=== PATIENT | male | born 1950 | race Hispanic/Latino ===

== ENCOUNTER → 2017-09-05 | Day surgery (SDC) | payer MEDICARE, OTHER ==
[2017-09-03 10:52] LABS: BASOPHILS % 0.4 % (0.0-1.0); EOSINOPHILS # (AUTO) 0.1 (0.0-0.4); EOSINOPHILS % 1.8 % (0.0-6.0); HEMATOCRIT 41.9 % (38.2-49.6); HEMOGLOBIN 14.2 g/dL (14.0-18.0); LYMPHOCYTES % 27.5 % (18.0-39.1); MEAN CORPUSCULAR HEMOGLOBIN 29.5 pg (28-32); MEAN CORPUSCULAR HGB CONC 33.9 g/dL (31-35); MEAN CORPUSCULAR VOLUME 87.1 fL (81-99); MONOCYTES # (AUTO) 0.4 (0.2-0.8); NEUTROPHILS # (AUTO) 4.6 (2.1-6.9); PLATELET COUNT 143 x10e3/uL (140-360); RED BLOOD COUNT 4.81 x10e6/uL (4.3-5.7); RED CELL DISTRIBUTION WIDTH 12.4 % (11.7-14.4)
--- NOTE | 2017-09-03 11:04 | Diagnostic Imaging Report ---
PROCEDURE:CHEST 2 VIEWS TECHNIQUE:PA and lateral chest totaling 3 radiographs INDICATION:Preoperative evaluation for left knee surgery COMPARISON:None. FINDINGS: Lungs are clear and symmetrically inflated. No pleural effusions. Enlarged cardiac silhouette. 2 the pacemaker of the left hemithorax; intact leads. Normal central vasculature. Intact skeleton with multilevel degenerative disc disease. CONCLUSION: Cardiomegaly with indwelling pacemaker. No acute abnormality. Dictated by: Bennie Jenkins M.D. on 09/03/2017 at 11:07 Electronically approved by: Bennie Jenkins M.D. on 09/03/2017 at 11:07
[2017-09-03 11:06] LABS: ANION GAP 12.3 mmol/L (8-16); BLOOD UREA NITROGEN 12 mg/dL (7-26); BUN/CREATININE RATIO 12 (6-25); CALCIUM 10.2 mg/dL (8.4-10.2); CARBON DIOXIDE 30 mmol/L (22-29); CHLORIDE 104 mmol/L (98-107); CREATININE, SERUM 1.02 mg/dL (0.72-1.25); EST GLOMERULAR FILTRATION RATE > 60 ML/MIN (60-); GLUCOSE 122 mg/dL (74-118); POTASSIUM 4.3 mmol/L (3.5-5.1); SODIUM 142 mmol/L (136-145)
[~2017-09-05] MED LIST: ASPIRIN81 MG PO; BUPIVACAINE 0.5%/EPI 30 ML SDV INJ ONE; CEFAZOLIN SOD 2 GM/D5W 50ML 50 ML IV ONE; DEXAMETHASONE SOD PHOS INJ 4 MG/ML VIAL ONE; EPHEDRINE SULFATE INJ 50 MG/10 ML SYR ONE; FENTANYL CITRATE/PF 100MCG/2 ML INJ ONE; FINASTERIDE5 MG PO; FLOMAX0.4 MG PO; GLIPIZIDE ER5 MG PO; KETOROLAC TROMETHAMINE 30 MG/ML VIAL ONE; LIDOCAINE HCL 2% LOCAL INJ 5 ML SDV VIAL INJ ONE; LOSARTAN POTASS25 MG PO; LOVASTATIN40 MG PO; METFORMIN HCL1000 MG PO; MIDAZOLAM HCL 2 MG/2 ML VIAL ONE; NUGENIX PO; ONDANSETRON HCL INJ 2 MG/ML VIAL ONE; PROPOFOL IV EMULSION 10 MG/ML 20 ML VIAL ONE; SEVOFLURANE INHAL SOLN 250 ML PEN BTL ONE; TERAZOSIN HCL1 MG PO; TRIAMTERENE-HCTZ1 EA PO
--- OUTSIDE RECORDS SUMMARY | 2017-09-05 09:57 | XMS REPORT ---
Author Author [facility] Address Unknown Phone Unavailable Care Team Providers Care Marriage Therapist Name Role Phone MARY TANG Unavailable Unavailable Problems This patient has no known problems. Allergies, Adverse Reactions, Alerts This patient has no known allergies or adverse reactions. Medications This patient has no known medications. Results Test Description Test Time Test Comments Text Results Atomic Results Result Comments CHEST 2 VIEWS [place] [address] Patient Name: KIM DAVID MR #: [id number] : 1950 Age/Sex: 67/M Req #: [id number] [facility] Physician: Ordered by: ANDREA RODRIGUEZ MD Report #: [id number] Location: OR Room/Bed: Procedure: [id number] DX/CHEST 2 VIEWS Exam Date: 09/03/17 Exam Time: 0950 REPORT STATUS: Signed PROCEDURE: CHEST 2 VIEWS TECHNIQUE: PA and lateral chest totaling 3 radiographs INDICATION: Preoperative evaluation for left knee surgery COMPARISON: None. FINDINGS: Lungs are clear and symmetrically inflated. No pleural effusions. Enlarged cardiac silhouette. 2 the pacemaker of the left hemithorax; intact leads. Normal central vasculature. Intact skeleton with multilevel degenerative disc disease. CONCLUSION: Cardiomegaly with indwelling pacemaker. No acute abnormality. Dictated by: María Jenkins M.D. on 2017 at 11:07 Electronically approved by: María Jenkins M.D. on 07/2017 at 11:07 Dictated By: MARÍA JENKINS MD 1107 Transcribed By: BORA on 09/03/17 1107 COPY TO: ANDREA RODRIGUEZ MD
--- NOTE | 2017-09-10 10:18 | Operative Report ---
DATE OF PROCEDURE: September 05, 2017 PREOPERATIVE DIAGNOSES 1. Left knee medial meniscus tear. 2. Left knee degenerative joint disease of the knee. POSTOPERATIVE DIAGNOSES 1. Left knee medial meniscus tear. 2. Left knee degenerative joint disease of the knee. OPERATIONS/PROCEDURES PERFORMED 1. The patient underwent a left knee examination under anesthesia. 2. Left knee arthroscopy. 3. Left knee partial medial meniscectomy. 4. Left knee chondroplasty of the patella, trochlea, the medial femoral condyle, medial tibial plateau, lateral femoral condyle, and lateral tibial plateau. HIDE OR SKIN BUFFER: None. ANESTHESIA: General endotracheal intubation anesthesia. IV FLUIDS: Per the anesthesia record. BRIEF DESCRIPTION OF THE PATIENT'S OPERATIVE PROCEDURE: Mr. Lutz was taken to the operating room and placed in the supine position on the operating table. Following the induction of general anesthesia, as well as endotracheal intubation, the patient's left lower extremity was examined under anesthesia. He was found to have a mild effusion within the knee joint, but otherwise ligamentously stable knee. The patient's lower extremity was prepped and draped in the standard surgical fashion. A 2-portal technique was used to provide this patient arthroscopic evaluation of the knee joint. Examination of the suprapatellar pouch, medial and lateral gutters found no evidence of loose bodies. There was, however, evidence of chondromalacia of the patella and trochlear surfaces. Scope was advanced in the medial compartment. Examination of the medial compartment demonstrated a torn medial meniscus. There was also chondromalacia of the articulating surfaces. A combination of biting forceps and motorized shaver were used to resect the torn portion of the meniscus. Chondroplasties of the medial and femoral condyle, medial and tibial plateau was performed at this time. Scope was advanced into the intracondylar notch, and the anterior cruciate ligament was identified and found to be intact. Scope was advanced in the lateral compartment, and chondromalacia of the articulating surfaces were encountered. A chondroplasty of the lateral femoral condyle and lateral tibial plateau were performed at this time. Scope was advanced to the suprapatellar pouch, and chondroplasty of the patella and trochlea were performed. The knee was deflated of its sterile normal saline. Each of the portal sites were closed using 4-0 nylon suture. The portal sites as well as the knee itself were injected with 0.5% Marcaine with epinephrine. Sterile dressings were applied. The patient was awakened and taken to the postanesthesia care unit in stable condition. Job#: [id number]
== END | disposition home or self-care (01) ==
LOC: OR 09:55
PROVIDERS: ATTEND Specialist
DX: S83.222A Peripheral tear of medial meniscus, current injury, left knee, initial encounter (principal); S83.262A Peripheral tear of lateral meniscus, current injury, left knee, initial encounter; S83.221A Peripheral tear of medial meniscus, current injury, right knee, initial encounter; M22.42 Chondromalacia patellae, left knee; M17.0 Bilateral primary osteoarthritis of knee; E11.9 Type 2 diabetes mellitus without complications; N40.0 Benign prostatic hyperplasia without lower urinary tract symptoms; I10 Essential (primary) hypertension; E78.00 Pure hypercholesterolemia, unspecified; E78.5 Hyperlipidemia, unspecified; X58.XXXA Exposure to other specified factors, initial encounter; Z01.812 Encounter for preprocedural laboratory examination; Z13.83 Encounter for screening for respiratory disorder NEC; Z01.818 Encounter for other preprocedural examination; Z79.84 Long term (current) use of oral hypoglycemic drugs; Z79.82 Long term (current) use of aspirin; Z68.34 Body mass index [BMI] 34.0-34.9, adult; Z95.0 Presence of cardiac pacemaker
CPT/HCPCS: 29881; 36415 ×2; 71046; 80048; 82948; 85025; J1100; J1885; J2001; J2250; J2405

== ENCOUNTER 2018-06-22 16:37 | Observation (INO) | payer MEDICARE, OTHER ==
[~2018-06-22] VITALS: Ht 175.3 cm; Wt 106.3 kg
[~2018-06-22 16:37] MED LIST changes: -BUPIVACAINE 0.5%/EPI 30 ML SDV INJ ONE; -CEFAZOLIN SOD 2 GM/D5W 50ML 50 ML IV ONE; -DEXAMETHASONE SOD PHOS INJ 4 MG/ML VIAL ONE; -EPHEDRINE SULFATE INJ 50 MG/10 ML SYR ONE; -FENTANYL CITRATE/PF 100MCG/2 ML INJ ONE; -KETOROLAC TROMETHAMINE 30 MG/ML VIAL ONE; -LIDOCAINE HCL 2% LOCAL INJ 5 ML SDV VIAL INJ ONE; -MIDAZOLAM HCL 2 MG/2 ML VIAL ONE; -ONDANSETRON HCL INJ 2 MG/ML VIAL ONE; -PROPOFOL IV EMULSION 10 MG/ML 20 ML VIAL ONE; -SEVOFLURANE INHAL SOLN 250 ML PEN BTL ONE
[2018-06-22 18:26] LABS: BASOPHILS % 0.5 % (0.0-1.0); EOSINOPHILS # (AUTO) 0.2 (0.0-0.4); EOSINOPHILS % 3.7 % (0.0-6.0); HEMATOCRIT 38.5 % (38.2-49.6); HEMOGLOBIN 12.4 g/dL (14.0-18.0); LYMPHOCYTES # (AUTO) 1.6 (1.0-3.2); MEAN CORPUSCULAR HEMOGLOBIN 29.3 pg (28-32); MEAN CORPUSCULAR HGB CONC 32.2 g/dL (31-35); MONOCYTES # (AUTO) 0.6 (0.2-0.8); MONOCYTES % 8.8 % (4.4-11.3); NEUTROPHILS # (AUTO) 3.8 (2.1-6.9); NEUTROPHILS % 60.7 % (38.7-80.0); PLATELET COUNT 142 x10e3/uL (140-360); RED BLOOD COUNT 4.23 x10e6/uL (4.3-5.7); RED CELL DISTRIBUTION WIDTH 13.3 % (11.7-14.4)
--- NOTE | 2018-06-22 18:29 | Diagnostic Imaging Report ---
Examination: CT head without contrast Clinical Indication: Dizziness. Technique: Transaxial noncontrast images from the skull base through the vertex were obtained. Sagittal and coronal reformatted images were done. Dose modulation, iterative reconstruction, and/or weight based adjustment of the mA/kV was utilized to reduce the radiation dose to as low as reasonably achievable. Comparison: None. Findings: Scalp: No abnormalities. Bones: Intact. No fractures. No blastic or lytic lesions. Brain sulci: Appropriate for patient's age. Ventricles: Normal in size and configuration. No hydrocephalus. . Extra-axial space: No abnormalities. Parenchyma: There are subtle confluent areas of low-attenuation within subcortical and periventricular white matter, nonspecific, but could represent microvascular ischemic disease. No masses, hemorrhage, or acute or chronic cortical based vascular insults. Suprasellar region: No abnormalities. Craniocervical junction: The foramen magnum is patent. No Chiari one malformation. Impression: 1. No acute intracranial finding. 2. Mild chronic microvascular ischemic change. Signed by: Dr. Ariane Wilkins M.D. on 06/22/2018 6:25 PM
[2018-06-22 18:37] LABS: INR 0.88; PROTHROMBIN TIME 12.4 seconds (11.9-14.5)
--- NOTE | 2018-06-22 18:37 | Diagnostic Imaging Report ---
EXAMINATION: CHEST SINGLE (PORTABLE) COMPARISON: Chest x-ray 09/03/2017 INDICATION: ^CHEST PAIN ^[id number] ^1811 ^Y DISCUSSION: Frontal view of the chest obtained at 1814 hours. HEART AND MEDIASTINUM: Stable cardiomegaly LINES: Dual-lead pacemaker wires terminate in the right atrium and right ventricle. Battery pack is stable in orientation. LUNGS: Diffuse hyperinflation. Central vascular markings are mildly prominent but stable. No pneumonia or pulmonary edema. PLEURA: No pleural effusion or pneumothorax. BONES AND SOFT TISSUES: Stable degenerative changes of the shoulders and spine. No focal osseous lesions. The soft tissues are normal. IMPRESSION: Cardiomegaly and mild central vascular congestion. No evidence of edema or pneumonia. Signed by: Dr. Salima Elizondo MD on 06/22/2018 6:33 PM
[2018-06-22 18:39] LABS: ALANINE AMINOTRANSFERASE 21 IU/L (0-55); ALBUMIN 3.9 g/dL (3.5-5.0); ALBUMIN/GLOBULIN RATIO 1.1 (0.8-2.0); ALKALINE PHOSPHATASE 74 IU/L (40-150); ANION GAP 13.2 mmol/L (8-16); BLOOD UREA NITROGEN 24 mg/dL (7-26); BUN/CREATININE RATIO 21 (6-25); CALCIUM 9.2 mg/dL (8.4-10.2); CARBON DIOXIDE 24 mmol/L (22-29); CHLORIDE 105 mmol/L (98-107); CREATINE KINASE 225 IU/L (30-200); CREATININE, SERUM 1.12 mg/dL (0.72-1.25); EST GLOMERULAR FILTRATION RATE > 60 ML/MIN (60-); GLUCOSE 98 mg/dL (74-118); POTASSIUM 4.2 mmol/L (3.5-5.1); SODIUM 138 mmol/L (136-145)
[2018-06-22 19:07] LABS: BILIRUBIN,URINE NEGATIVE (NEGATIVE); CLARITY,URINE CLEAR (CLEAR); COLOR,URINE YELLOW (YELLOW); KETONES,URINE NEGATIVE (NEGATIVE); LEUKOCYTE ESTERASE ,URINE NEGATIVE (NEGATIVE); NITRITE,URINE NEGATIVE (NEGATIVE); PROTEIN,URINE DIPSTICK NEGATIVE (NEGATIVE); URINE UROBILINOGEN 0.2 mg/dL (0.2 - 1)
[2018-06-22 19:17] LABS: BACTERIA,URINE FEW /HPF; EPITHELIAL CELLS,URINE FEW /LPF; WBC,URINE (MAN) 0-5 /HPF (0-5)
[2018-06-22] MEDS ORDERED: MECLIZINE HCL12.5 MG PO (19:41)
[2018-06-22] MEDS ORDERED: MECLIZINE HCL 12.5 MG TAB PO ONE (19:45)
[2018-06-22] MEDS ORDERED: SODIUM CHLORIDE 0.9% 1000ML 1,000 ML IV SCH (19:45)
[2018-06-22] MEDS ORDERED: SODIUM CHLORIDE 0.9% 1000ML 1,000 ML IV ONE (20:45)
[2018-06-23] MEDS ORDERED: DEXTROSE 50% SYRINGE 50 ML IV PRN (00:45)
--- NOTE | 2018-06-23 00:55 | NUR ---
Pt arrived to the unit from ER in a stretcher with c/o dizziness and vertigo.aaox3.admission assessment done.pt is not able to provide complete history.pt is sleepy.iv left ac #18 patent.pt has sleep apnea .on c pap.bed alarm on.bed locked and in lowest position.phone and call light within reach.instructed to call for assistance as needed.
[2018-06-23 01:05] VITALS: BP 138/64
[2018-06-23 01:06] VITALS: BP 138/64
[2018-06-23 04:00] VITALS: BP 146/66
--- NOTE | 2018-06-23 05:00 | NUR ---
PT SLEEPING COMFORTABLY IN THE BED.
--- NOTE | 2018-06-23 06:50 | NUR ---
REPORT GIVEN TO THE ONCOMING RN WALKING ROUNDS DONE.STABLE CONDITION.
[2018-06-23] MEDS ORDERED: INSULIN REGULAR, HUMAN 100 UNIT/1 ML 3ML VIAL SQ SCH (07:30)
[2018-06-23 08:31] VITALS: BP 133/67
[2018-06-23 09:00] VITALS: BP 133/67
[2018-06-23] MEDS ORDERED: MECLIZINE HCL 12.5 MG TAB PO PRN (09:45)
--- NOTE | 2018-06-23 09:45 | NUR ---
REVIEWED HOME MEDICATIONS WITH AND PT AT BEDSIDE
[2018-06-23] MEDS ORDERED: TERAZOSIN HCL 1 MG CAP PO SCH (10:30)
[2018-06-23] MEDS ORDERED: TRIAMTERENE/HCTZ 37.5-25 MG TAB PO SCH (10:30)
[2018-06-23] MEDS ORDERED: FINASTERIDE 5 MG TAB PO SCH (10:30)
[2018-06-23] MEDS ORDERED: LOSARTAN POTASSIUM 25 MG TAB PO SCH (10:30)
--- NOTE | 2018-06-23 10:52 | NUR ---
SPOKE TO MD HOUSTON REGARDING PT DECISION TO GO HOME INSTEAD AND FOLLOW UP WITH PRIMARY OUTPATIENT FOR PT STATES FEELING BETTER AND NO LONGER DIZZY HAS NOW PUT A DC ORDER WILL DC PT AT THIS TIME
--- NOTE | 2018-06-23 11:50 | NUR ---
PT DC TO HOME , DISCHARGE INSTRUCTIONS AND FOLLOW UP VISIT WITH NEUROLOGIST UNDERSTOOD PT IV DC PRESSURE DRESSING APPLIED AND TAPED PT IS NOW OFF UNIT TO HOME VIA WHEEL CHAIR
--- NOTE | 2018-06-23 11:56 | Pre Op History & Physical ---
CHIEF COMPLAINT: Transient dizziness and unsteady gait. PRIMARY PHYSICIAN: Tony Bernstein MD HISTORY OF PRESENT ILLNESS: The patient is a 67-year-old man. He has a history of some cardiac disease and required a pacemaker six years ago. He last saw the carton forming machine operator a few months ago. Apparently, he was at work doing some insulation-type work in the plants when he suddenly became dizzy. He felt as if he were drunk for about 3-4 hours. He had some difficulty walking. He had no headache or focal weakness. PAST SURGICAL HISTORY: 1. The patient had a pacemaker placed. 2. The patient denies any prior heart surgery. PAST MEDICAL HISTORY: 1. Hypertension. 2. Diabetes. 3. Prostate disease. SOCIAL HISTORY: The patient is not a drinker. The patient is not a smoker. ALLERGIES: THE PATIENT HAS NO KNOWN DRUG ALLERGIES. FAMILY HISTORY: The patient has no significant family history. REVIEW OF SYSTEMS: The patient is afebrile. There is no headache. The patient has no neck pain. The patient denies chest pain or difficulty breathing. There is no abdominal pain. He has no nausea or vomiting. He does not report any diarrhea. Neurological exam, he feels better now and does not complain of any difficulty walking or any focal abnormalities. PHYSICAL EXAMINATION: VITAL SIGNS: The blood pressure is 133/67, and the saturation is 97% on 3 L. The pulse is 68. HEENT: Shows no facial swelling or erythema. The nasal mucosa is normal. The oropharynx is normal. LYMPHATIC: Shows no submandibular, cervical, or supraclavicular adenopathy. CARDIAC: Reveals a regular rate and rhythm with a normal S1 and S2. There are no murmurs or rubs. LUNGS: Auscultation of lungs reveals clear breath sounds bilaterally. There is no wheezing. ABDOMEN: Soft, nontender. There is no rebound or guarding. EXTREMITIES: Show no leg edema or calf tenderness. There is no cyanosis or clubbing. SKIN: Shows no rashes. NEUROLOGICAL: Shows no focal abnormalities. LABORATORY DATA: The blood chemistry showed a BUN to creatinine ratio of 24:1.12. The other electrolytes are within normal limits. The white blood cell count is 6.22 and hemoglobin is 12.4. The platelet count is 142. Blood counts are within normal limits. RADIOGRAPHIC DATA: CT scan of the brain shows no acute findings. Chest x-ray shows cardiomegaly with some mild venous congestion. IMPRESSION: 1. Transient dizziness and ataxia, possibly suggestive of a posterior circulation transient ischemic attack. 2. Diabetes. 3. Hypertension. 4. Prostate disease. PLAN: 1. The patient will have a neurology evaluation. 2. Carotid duplex. 3. Continue to monitor blood pressure and blood sugars. 4. Possible discharge home tomorrow morning depending on the results of the neurology evaluation. MD JENNIFER Gutiérrez/ELIZABETHL /[id number]
[2018-06-23 12:16] VITALS: BP 129/67
--- NOTE | 2018-06-23 12:16 | Progress Note ---
DATE: ADDENDUM: The patient and his family decided to go home and pursue Neurology consultation as an outpatient. He feels much better and he is eager to return to work. MD JENNIFER Gutiérrez/JOHANA /[id number]
[2018-06-23] MEDS ORDERED: SIMVASTATIN 20 MG TAB PO SCH (21:00)
[2018-06-24] MEDS ORDERED: GLIPIZIDE 5 MG TAB ER PO SCH (07:30)
[2018-06-24] MEDS ORDERED: TAMSULOSIN HCL 0.4 MG CAP PO SCH (09:00)
[2018-06-24] MEDS ORDERED: ASPIRIN 81 MG CHEW TAB PO SCH (09:00)
== END 2018-06-23 11:34 | disposition home or self-care (01) ==
LOC: ER 16:37 → ERHOLD 22:45 → MED/SURG 06-23 00:54
PROVIDERS: ADMIT Internal Medicine; ATTEND Internal Medicine
DX: R42 Dizziness and giddiness (principal); I10 Essential (primary) hypertension; E11.9 Type 2 diabetes mellitus without complications; N40.0 Benign prostatic hyperplasia without lower urinary tract symptoms; Z95.0 Presence of cardiac pacemaker; I51.7 Cardiomegaly; I87.8 Other specified disorders of veins; Z79.4 Long term (current) use of insulin
CPT/HCPCS: 36415 ×2; 70450; 71045; 80053; 81001; 82550; 82553; 82948; 83880; 84484; 85025; 85610; 85730; 93005; 94660; 99284; G0378 ×2; J7030; J8597

== ENCOUNTER → 2018-10-25 | Outpatient (CLI) | payer MEDICARE ==
[~2018-10-25] MED LIST changes: +MECLIZINE HCL12.5 MG PO
--- NOTE | 2018-10-25 13:04 | Diagnostic Imaging Report ---
Exam: Testicular ultrasound. Clinical History: Testicular pain, pelvic pain Findings: Sonographic evaluation of the testicles. Both testes are normal in echogenicity and size without intratesticular mass. There is normal symmetric color flow to both testes. The right testes measures 4.0 x 2.1 x 2.8 cm and the left testes measures 4.0 x 1.6 x 2.9 cm. The right epididymis measures 1.1 x 0.6 x 0.7 cm and the left epididymis measures 0.9 x 1.0 x 0.7 cm. Small right hydrocele. No left hydrocele. No varicoceles. In the left pelvic area of patient symptomatic pain, there is peristalsis like motion seen during Valsalva, suggestive of small inguinal hernia. Impression: No evidence of testicular torsion. Findings suggestive of small left inguinal hernia. Small right hydrocele. Signed by: Megha Regalado MD on 10/25/2018 1:01 PM
== END ==
LOC: US 11:48
PROVIDERS: ATTEND Urology
DX: N50.812 Left testicular pain (principal); N50.811 Right testicular pain; N43.3 Hydrocele, unspecified; R10.2 Pelvic and perineal pain; G89.29 Other chronic pain
CPT/HCPCS: 76870; 93976